=== PATIENT | female | born 1985 | race Caucasian/White ===

== ENCOUNTER 2019-03-28 18:00 | Emergency (ER) | payer BC ==
[2019-03-28 19:24] VITALS: BP 109/67
--- NOTE | 2019-03-28 19:46 | UC ---
Complaint Female HPI - HPI Summary HPI Summary: Per boiler engineer: "URINARY URGENCY, BURNING LAST FEW DAYS., NO CHILLS OR FEVER. LOWER ABDOMINAL PRESSSURE." -she has had UTIs in [place] and sx do seem similar,. but she also has had these sx a alot w/ neg cx. 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 she is going to [facility] for the [facility] wknd and wanted to be sure before she left. no f/c/nv/. denies . no new LBP - has rtailbone issues. - History Of Current Complaint Chief Complaint: UCGU Stated Complaint: URINARY COMPLAINT Time Seen by Provider: 03/28/19 19:31 Hx Last Menstrual Period: 03/19/19 Pain Intensity: 3 - Allergies/Home Medications Allergies/Adverse Reactions: Allergies Allergy/AdvReac Type Severity Reaction Status Date / Time amoxicillin Allergy Unknown Rash Verified 03/28/19 19:10 Home Medications: Home Medications A And F Beta Food 03/28/19 [History] Cataplex B 03/28/19 [History] Cholecalciferol TAB* [Vitamin D TAB*] 10,000 unit PO DAILY 03/28/19 [History Confirmed 03/28/19] Dicyclomine CAP* [Bentyl CAP*] 10 mg PO TID PRN 03/28/19 [History Confirmed 11/15] Simplex F 03/28/19 [History] Tumeric 03/28/19 [History] PMH/Surg Hx/FS Hx/Imm Hx Previously Healthy: Yes - Surgical History Surgical History: Yes Surgery Procedure, Year, and Place: WISDOM TEETH. 07/29/17 - Rt [facility] LIGAMENT REPAIR - Family History Known Family History: Positive: Hypertension - Social History Alcohol Use: None Substance Use Type: None Smoking Status (MU): Never Smoked Tobacco Review of Systems All Other Systems Reviewed And Are Negative: Yes Constitutional: Positive: Negative Skin: Positive: Negative Eyes: Positive: Negative ENT: Positive: Negative Respiratory: Positive: Negative Cardiovascular: Positive: Negative Gastrointestinal: Positive: Negative Genitourinary: Positive: Dysuria, Frequency Motor: Positive: Negative Neurovascular: Positive: Negative Musculoskeletal: Positive: Negative Neurological: Positive: Negative Is Patient Immunocompromised?: Yes - on plaquenil Physical Exam Triage Information Reviewed: Yes Appearance: Well-Appearing, No Pain Distress, Well-Nourished - very pleasant, good historian Vital Signs: Initial Vital Signs Temp 98.3 F 03/28/19 19:18 Pulse 54 03/28/19 19:18 Resp 16 03/28/19 19:18 BP 109/67 03/28/19 19:18 Pulse Ox 100 03/28/19 19:18 Vital Signs Reviewed: Yes Eye Exam: Normal ENT Exam: Normal Neck exam: Normal Neck: Positive: Supple, Nontender, No Lymphadenopathy Respiratory Exam: Normal Respiratory: Positive: Lungs clear, Normal breath sounds, No respiratory distress, No accessory muscle use. Negative: Crackles, Rhonchi, Stridor, Wheezing Cardiovascular Exam: Normal Cardiovascular: Positive: RRR, No Murmur, Pulses Normal, Brisk Capillary Refill Abdomen Description: Positive: Soft, Other: - very mild suprapubic tenderness. Negative: CVA Tenderness (R), CVA Tenderness (L), Distended, Guarding Bowel Sounds: Positive: Present Musculoskeletal Exam: Normal Neurological Exam: Normal Psychological Exam: Normal Skin Exam: Normal Complaint Female Dx - Course Course Of Treatment: UA -will check cx. -treat w/ macrobid 100mgs po bid x 5 d. she will call in 2 days for cx and dc abx if neg. she has had these sx both with and without infections w/ neg urogyn work up. going away for wknd to [facility] and err on the side of treating. she is pleased with this. - Differential Dx/Diagnosis Differential Diagnosis/HQI/PQRI: Urinary Tract Infection Provider Diagnosis: Dysuria Discharge - Sign-Out/Discharge Documenting (check all that apply): Patient Departure All imaging exams completed and their final reports reviewed: No Studies - Discharge Plan Condition: Stable Disposition: HOME Prescriptions: Nitrofurantoin Macrocrystal [Nitrofurantoin] 100 mg PO BID 5 Days #10 capsule Patient Education Materials: Dysuria (ED) Referrals: Jaxon THOMPSON,Meek Feng [Primary Care Provider] - Additional Instructions: We will give you an antibiotic for the possible UTI as you will be away for the weekend. you can call us in 2 days for the culture results and stop the antibiotic if it is negative. Plenty of fluids. - Billing Disposition and Condition Condition: STABLE Disposition: Home
== END 2019-03-28 20:07 | disposition home or self-care (01) ==
LOC: UCCORT 18:00
DX: R03.0 Elevated blood-pressure reading, without diagnosis of hypertension (principal); Z88.0 Allergy status to penicillin
CPT/HCPCS: 81003; 87086; 99212; G0463